=== PATIENT | female | born 1975 | race Caucasian/White ===

== ENCOUNTER 2020-05-05 07:24 | Emergency (ER) | payer MEDICARE ==
[2020-05-05] MEDS ORDERED: Adacel (T-DAP) 0.5 ML SYRINGE ONE (07:50)
[2020-05-05] MEDS ORDERED: Acetaminophen 500 MG TAB ONE (07:50)
[2020-05-05] MEDS ORDERED: Ketorolac Tromethamine 30 MG/ML VIAL ONE (07:50)
[2020-05-05] MEDS ORDERED: Bupivacaine 0.5% 10 ML VIAL ONE (07:50)
--- NOTE | 2020-05-05 08:41 | RAD ---
EXAM: 2 views of the right hip HISTORY: Right hip pain after fall COMPARISON: 11/04/2010 FINDINGS: 2 views of the right hip shows no evidence of acute fracture or dislocation. No degenerativ e changes are seen in the hip. No soft tissue swelling is present. Hardware seen in the lumbar spine and right sacroiliac joint. IMPRESSION: No evidence of acute osseous abnormality.
--- NOTE | 2020-05-05 08:42 | RAD ---
Exam: Single view of the pelvis HISTORY: Pelvic and hip pain after fall COMPARISON: None FINDINGS: A single view the pelvis shows no evidence of acute fracture or dislocation. No degenerativ e changes seen in either hip. Hardware seen in the lumbar spine and right sacroiliac joint. IMPRESSION: No evidence of acute osseous abnormality.
--- NOTE | 2020-05-05 08:45 | RAD ---
EXAM: 3 views of the lumbosacral spine HISTORY: Low back pain COMPARISON: None FINDINGS: 3 views of the lumbosacral spine shows normal height and alignment of the vertebral bodies without fracture or subluxation. Postsurgical changes are seen from fusion of the lower lumbosacral spine at L4/5. An anterior plate and screws is seen. The screws in L5 have fractured. The patient [place] ears to have a retained posterior pedicle screw. Hardware is seen along the posterior elements at L5 and in the right sacroiliac joint. There is narrowing of the L4/5 intervertebral disc with surroun ding osteophytes. Degenerative changes are seen surrounding L1/2 with intervertebral disc space narrowing and osteophyte formation. The sacroiliac joints are unremarkable. IMPRESSION: Postsurgical changes of the lumbar spine without acute osseous abnormality.
[2020-05-05] MEDS ORDERED: Lidocaine 1% w/Epinephrine 1:100K 20 ML VIAL ONE (09:13)
[2020-05-05] MEDS ORDERED: Bacitracin 1 PK ONE (10:06)
== END 2020-05-05 10:15 | disposition home or self-care (01) ==
LOC: ERS 07:24
DX: S71.011A Laceration without foreign body, right hip, initial encounter (principal); I49.9 Cardiac arrhythmia, unspecified; Z79.899 Other long term (current) drug therapy; W19.XXXA Unspecified fall, initial encounter; Y93.K1 Activity, walking an animal
CPT/HCPCS: 12002; 72100; 72170; 90471; 90715; 96372; J1885; J3490

== ENCOUNTER 2021-06-23 08:09 | Outpatient (CLI) | payer MEDICARE | END 2021-06-23 08:10 | disposition home or self-care (01) | LOC: BICMRI 08:09 | PROVIDERS: ATTEND Psychiatry & Neurology Neurology | DX: G62.89 Other specified polyneuropathies (principal); Z98.890 Other specified postprocedural states | CPT/HCPCS: 72020; 72146 ==

== ENCOUNTER 2021-07-08 07:47 | Outpatient (CLI) | payer MEDICARE ==
[2021-07-08] MEDS ORDERED: Magnevist 469MG/ML 20 ML VIAL ONE (10:20)
== END 2021-07-08 07:48 | disposition home or self-care (01) ==
LOC: BICMRI 07:47
PROVIDERS: ATTEND Psychiatry & Neurology Neurology
DX: G62.9 Polyneuropathy, unspecified (principal)
CPT/HCPCS: 70553; A9579

== ENCOUNTER 2021-09-28 09:09 | Day surgery (SDC) | payer MEDICARE ==
[~2021-09-28 09:09] MED LIST: OCTAGAM 10% 60 GM, OCTAGAM 10% 10 GM, OCTAGAM 10% 5 GM in Admixture Fee 1 EACH IVPB SCH
[2021-09-28] MEDS ORDERED: Sodium Chloride 0.9% 10 ML ONE ×2 (09:29)
[2021-09-28 10:16] VITALS: TEMP 97.9
[2021-09-28 13:43] VITALS: BP 133/81
== END 2021-09-28 13:44 | disposition home or self-care (01) ==
LOC: ONC/OP 09:09
PROVIDERS: ATTEND Psychiatry & Neurology Neurology
DX: G62.89 Other specified polyneuropathies (principal)
CPT/HCPCS: 96365; 96366; J1568

== ENCOUNTER 2021-10-26 08:28 | Day surgery (SDC) | payer MEDICARE ==
[~2021-10-26 08:28] MED LIST changes: +IMMUNE GLOBULIN IVPB SCH; -OCTAGAM 10% 60 GM, OCTAGAM 10% 10 GM, OCTAGAM 10% 5 GM in Admixture Fee 1 EACH IVPB SCH; +[UNRECOGNIZED DRUG - OTHER] IVPB SCH
[2021-10-26] MEDS ORDERED: Sodium Chloride 0.9% 10 ML ONE ×2 (08:39)
[2021-10-26 09:06] VITALS: TEMP 97.8
[2021-10-26 10:02] VITALS: BP 101/63
== END 2021-10-26 12:14 | disposition home or self-care (01) ==
LOC: ONC/OP 08:28
PROVIDERS: ATTEND Psychiatry & Neurology Neurology
DX: G62.89 Other specified polyneuropathies (principal)
CPT/HCPCS: 96365; 96366; J1568

== ENCOUNTER 2021-11-23 08:43 | Day surgery (SDC) | payer MEDICARE ==
[~2021-11-23 08:43] MED LIST changes: +ADMIXTURE FEE IVPB SCH
[2021-11-23 09:35] VITALS: TEMP 98.1
[2021-11-23] MEDS ORDERED: Sodium Chloride 0.9% 10 ML ONE (12:39)
[2021-11-23 12:53] VITALS: BP 110/63
== END 2021-11-23 12:53 | disposition home or self-care (01) ==
LOC: ONC/OP 08:43
PROVIDERS: ATTEND Psychiatry & Neurology Neurology
DX: G62.89 Other specified polyneuropathies (principal)
CPT/HCPCS: 96365; 96366; J1568

== ENCOUNTER 2022-01-18 08:31 | Day surgery (SDC) | payer MEDICARE ==
[2022-01-18] MEDS ORDERED: IMMUNE GLOBULIN IVPB SCH (08:45)
[2022-01-18] MEDS ORDERED: ADMIXTURE FEE IVPB SCH (08:45)
[2022-01-18 08:54] VITALS: BP 140/71; TEMP 97.8
== END 2022-01-18 14:50 | disposition home or self-care (01) ==
LOC: ONC/OP 08:31
PROVIDERS: ATTEND Psychiatry & Neurology Neurology
DX: G62.89 Other specified polyneuropathies (principal)
CPT/HCPCS: 96365; 96366; J1568

== ENCOUNTER 2022-02-15 09:23 | Day surgery (SDC) | payer MEDICARE ==
[~2022-02-15 09:23] MED LIST changes: -[UNRECOGNIZED DRUG - OTHER] IVPB SCH
[2022-02-15 09:47] VITALS: TEMP 97.9
[2022-02-15 12:59] VITALS: BP 100/58
== END 2022-02-15 12:40 | disposition home or self-care (01) ==
LOC: ONC/OP 09:23
PROVIDERS: ATTEND Psychiatry & Neurology Neurology
DX: G62.89 Other specified polyneuropathies (principal)
CPT/HCPCS: 96365; 96366; J1568

== ENCOUNTER → 2022-05-22 | Day surgery (SDC) | payer MEDICARE ==
[2022-05-18 11:01] VITALS: BMI 31.6
[2022-05-22 08:47] VITALS: BP 106/83; TEMP 98
[2022-05-22 10:41] LABS: #Basophils 0.1 thou/uL (0.0-0.2); #Eosinphils 0.1 thou/uL (0.0-0.7); #Lymphocytes 3.3 thou/uL (1.20-3.40); #Monocytes 0.7 thou/uL (0.11-0.59); #Neutrophils 5.9 thou/uL (1.40-6.50); %Basophils 1.1 % (0.0-1.0); %Eosinophils 1.4 % (0.0-10.0); %Lymphocytes 32.4 % (21.0-51.0); %Monocytes 6.7 % (0.0-10.0); %Neutrophils 58.4 % (42.0-75.0); Hemoglobin 14.1 g/dL (12.0-16.0); Mean Corpuscular HGB CONC 32.9 g/dL (32.0-36.0); Mean Corpuscular Hemoglobin 29.6 pg (27.0-31.0); Mean Corpuscular Volume 89.8 fL (78.0-98.0); Mean Platelet Volume 9.3 fL (7.4-10.4); Platelet Count 266 thou/uL (130-400); Red Blood Cell (RBC) Count 4.78 mill/uL (4.20-5.40)
[2022-05-22 11:17] LABS: ALT (SGPT) 21 U/L (8-55); AST (SGOT) 23 U/L (5-34); Albumin 4.3 g/dL (3.5-5.0); Alkaline Phosphatase 105 U/L (40-110); Anion Gap 15 mmol/L (10-20); BUN (Urea Nitrogen) Less than 4 mg/dL (7.0-18.7); Bilirubin, Total 0.6 mg/dL (0.2-1.2); Calc. Creatinine Clearance 154 mL/min (70-130); Calcium 9.7 mg/dL (7.8-10.44); Carbon Dioxide 23 mmol/L (22-29); Chloride 105 mmol/L (98-107); Estimated GFR 108; Glucose 125 mg/dL (70-105); Potassium 3.2 mmol/L (3.5-5.1); Protein, Total 7.3 g/dL (6.0-8.3); Sodium 140 mmol/L (136-145)
[2022-05-25 15:37] LABS: CSF IgG Index 0.6 (0.0-0.7); CSF IgG Synthesis Rate 1.1 mg/day (-9.9 TO +3.3); IgG/Alb CSF 0.12 (0.00-0.25)
== END | disposition home or self-care (01) ==
LOC: RAD 08:13
PROVIDERS: ATTEND Psychiatry & Neurology Neurology
PROC: 009U3ZX Drainage of Spinal Canal, Percutaneous Approach, Diagnostic (ICD-10-PCS; principal; 2022-05-22)
DX: G62.9 Polyneuropathy, unspecified (principal); Z79.82 Long term (current) use of aspirin; Z79.899 Other long term (current) drug therapy
CPT/HCPCS: 36415; 62270; 80053; 82040; 82042; 82784; 83916; 85025

== ENCOUNTER 2022-05-26 12:09 | Outpatient (CLI) | payer MEDICARE | END 2022-05-26 12:10 | disposition home or self-care (01) | LOC: SCSMRI 12:09 | PROVIDERS: ATTEND Psychiatry & Neurology Neurology | DX: G62.9 Polyneuropathy, unspecified (principal); J90 Pleural effusion, not elsewhere classified; M47.812 Spondylosis without myelopathy or radiculopathy, cervical region; M47.813 Spondylosis without myelopathy or radiculopathy, cervicothoracic region; M47.815 Spondylosis without myelopathy or radiculopathy, thoracolumbar region; M47.816 Spondylosis without myelopathy or radiculopathy, lumbar region; M47.817 Spondylosis without myelopathy or radiculopathy, lumbosacral region; Z98.890 Other specified postprocedural states | CPT/HCPCS: 70553; 72156; 72157; 72158 ==

== ENCOUNTER 2023-08-06 15:52 | Observation (INO) | payer MEDICARE ==
[2023-08-06] MEDS ORDERED: Mag-Al 1200 mg/1200 mg/30 ML UDCUP ONE (16:53)
[2023-08-06] MEDS ORDERED: Pantoprazole 40 MG VIAL ONE (16:53)
[2023-08-06 17:01] LABS: #Basophils 0.1 thou/uL (0.0-0.2); #Monocytes 0.8 thou/uL (0.11-0.59); #Neutrophils 10.3 thou/uL (1.40-6.50); %Basophils 0.4 % (0.0-1.0); %Eosinophils 0.1 % (0.0-10.0); %Lymphocytes 21.1 % (21.0-51.0); %Monocytes 5.3 % (0.0-10.0); %Neutrophils 72.6 % (42.0-75.0); Hematocrit 43.6 % (36.0-47.0); Hemoglobin 14.7 g/dL (12.0-16.0); Mean Corpuscular HGB CONC 33.7 g/dL (32.0-36.0); Mean Corpuscular Hemoglobin 29.6 pg (27.0-31.0); Mean Corpuscular Volume 87.9 fl (78.0-98.0); Mean Platelet Volume 12.8 fL (7.4-10.4); Platelet Count 282 10x3/uL (130-400); RBC Distribution Width 13.7 % (11.5-14.5); Red Blood Cell (RBC) Count 4.96 mill/uL (4.20-5.40); White Blood Cell (WBC) Count 14.2 10x3/uL (4.8-10.8)
[2023-08-06 17:27] LABS: Troponin I Less than 0.010 ng/mL (< 0.028)
[2023-08-06 17:47] LABS: ALT (SGPT) 14 U/L (8-55); AST (SGOT) 15 U/L (5-34); Albumin 5.3 g/dL (3.5-5.0); Alkaline Phosphatase 120 U/L (40-110); Anion Gap 19 mmol/L (10-20); BUN (Urea Nitrogen) 13 mg/dL (7.0-18.7); Bilirubin, Total 0.5 mg/dL (0.2-1.2); Calc. Creatinine Clearance 0 mL/min (70-130); Calcium 10.2 mg/dL (7.8-10.44); Carbon Dioxide 17 mmol/L (22-29); Chloride 108 mmol/L (98-107); Estimated GFR 83; Globulin 2.9 g/dL (2.4-3.5); Glucose 119 mg/dL (70-105); Lipase 16 U/L (8-78); Potassium 3.5 mmol/L (3.5-5.1); Protein, Total 8.2 g/dL (6.0-8.3); Sodium 140 mmol/L (136-145)
[2023-08-06] MEDS ORDERED: Nitroglycerin 0.4 MG TAB 1 EACH ONE (18:00)
[2023-08-06] MEDS ORDERED: ALPRAZolam 0.5 MG TAB PO PRN (19:56)
[2023-08-06] MEDS ORDERED: Nitroglycerin 0.4 MG TAB (25 Tab Bottle) SL PRN (20:09)
[2023-08-06] MEDS ORDERED: Ibuprofen 200 MG TAB PO PRN (20:09)
[2023-08-06 20:33] LABS: Troponin I Less than 0.010 ng/mL (< 0.028)
[2023-08-06] MEDS ORDERED: Melatonin 3 MG TAB PO SCH (21:00)
[2023-08-06] MEDS: Pregabalin 75 MG CAP PO SCH (21:16)
[2023-08-06] MEDS: Topiramate 100 MG TAB PO SCH (21:16)
[2023-08-06 21:47] LABS: Bacteria/HPF None Seen HPF (None Seen); Bilirubin Negative (Negative); Blood, Urine Negative (Negative); CAUTI Indications for Culture Alt mental st,lethar; Clarity Clear (Clear); Glucose, Urine (Dipstick) Normal (Negative); Ketone, Urine Negative (Negative); Leukocyte Negative Leu/uL (Negative); Nitrite Negative (Negative); Protein, Urine (Dipstick) Negative (Neg-Trace); RBC/HPF None Seen HPF (0-3); Specific Gravity, Urine 1.011 (1.002-1.036); Squamous Epithelial 0-3 HPF (0-3); Urobilinogen Normal mg/dL (Less than 2); WBC/HPF 0-3 HPF (0-3)
[2023-08-06 21:55] LABS: Amphetamine Not Detected (NotDetected); Barbiturates Screen Not Detected (NotDetected); Benzodiazepine Screen Not Detected (NotDetected); Cocaine Metabolite Screen Not Detected (NotDetected); Methadone Not Detected (NotDetected); Methamphetamine Not Detected (NotDetected); Opiate Screen Not Detected (NotDetected); Oxycodone Screen Not Detected (NotDetected); Phencyclidine (PCP) Not Detected (NotDetected); THC/Cannabinoid Screen Not Detected (NotDetected); Tricyclic Screen Not Detected (NotDetected)
[2023-08-06 21:58] LABS: Urine Culture Reflex No No
[2023-08-06] MEDS: Nitroglycerin 2% Ointment 1 INCH/1 GM Packet TOP SCH (22:00)
[2023-08-06 23:29] LABS: Troponin I Less than 0.010 ng/mL (< 0.028)
[2023-08-06 23:53] VITALS: BMI 34.7
[2023-08-07] MEDS: Nitroglycerin 2% Ointment 1 INCH/1 GM Packet TOP SCH (05:01)
[2023-08-07 05:24] LABS: Hemoglobin A1c 5.2 % (4.0-6.0)
[2023-08-07] MEDS: Pregabalin 75 MG CAP PO SCH (08:03)
[2023-08-07] MEDS: Topiramate 100 MG TAB PO SCH (08:05)
[2023-08-07] MEDS ORDERED: DULoxetine 60 MG CAP PO SCH (09:00)
[2023-08-07] MEDS ORDERED: Aspirin 81 mg Enteric Coated Tablet PO SCH (09:00)
[2023-08-07 09:21] VITALS: TEMP 98.2
[2023-08-07 12:10] VITALS: BP 130/69
[2023-08-10] MEDS ORDERED: FLU VACC QS2023-24(6MOS UP)/PF 60 MCG/0.5 ML SYRINGE IM ONE (09:00)
== END 2023-08-07 15:25 | disposition home or self-care (01) ==
LOC: ERS 15:52 → 2SW 18:44
PROVIDERS: ADMIT Hospitalist; ATTEND Internal Medicine
DX: R07.9 Chest pain, unspecified (principal); M99.88 Other biomechanical lesions of rib cage; D72.829 Elevated white blood cell count, unspecified; E87.20 Acidosis, unspecified; F31.9 Bipolar disorder, unspecified; F41.9 Anxiety disorder, unspecified; F43.10 Post-traumatic stress disorder, unspecified; F17.200 Nicotine dependence, unspecified, uncomplicated; Z90.49 Acquired absence of other specified parts of digestive tract; Z90.710 Acquired absence of both cervix and uterus; Z98.890 Other specified postprocedural states; Z79.899 Other long term (current) drug therapy
CPT/HCPCS: 71045; 71260; 78452; 80053; 80061; 80201; 80306; 81001; 83036; 83605; 83690; 83735; 84443; 84484 ×2; 85025; 85379; 86140; 93005; 93017; 94760; 96374; 96375; 99285; A9502; J2785; 36415; A9500; C9113; G0378